=== PATIENT | female | born 1970 | race Hispanic/Latino ===

== ENCOUNTER 2017-01-23 16:47 | Observation (INO) | payer OTHER ==
[~2017-01-23] VITALS: Ht 160 cm; Wt 65.4 kg
[2017-01-23] VITALS (10 sets, daily range): BP systolic 129–158; BP diastolic 69–89; PULSE 64–79; RESP 16–20; O2SAT 97–100
[~2017-01-23 16:47] MED LIST: NO MEDS
--- NOTE | 2017-01-23 19:17 | ED.REPORT ---
HPI-General Illness Date of Service Jan 23, 2017 ED Provider: Zion Sagastume MD Pt is a 46 y/o female w/ a hx of pernicious anemia, cytopenias, chronic Hep C, bilateral complex ovarian cysts, presenting to the ED by request of Dr. Landon with concern for anemia. She had blood tests earlier today and Dr. Landon requesting she come into the hospital for blood transfusion. She has been having abnormally large amount of menstrual bleeding for 3 months. She states she has been receiving B12 shots for 2 years. She is feeling asymptomatic at the moment and specifically denies bloody stools, vomiting, CP, SOB, fever, chills, melena, nausea. 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: Barbi Nursing Notes Stated Complaint: SENT HERE BY DR LLAMAS OFFICE FOR BLOOD TRANSFUSI Chief Complaint: General Complaint Nursing Notes Reviewed: Yes Allergies: Coded Allergies: No Known Allergies (Verified , 01/23/17) No Active Prescriptions or Reported Meds General Time Seen by MD: 19:12 Chief Complaint Other (Anemia) Hx Obtained From: Patient Arrived By: Walk-in Sudden in Onset?: No Onset Occurred: Onset unknown Severity: Current: No pain currently Severity: Maximum: No pain Recent Healthcare: Recent testing, Previous diagnosis, Prior workup Similar Sx Previous: Yes Past Medical History Past Medical History Notes: 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: Barbi Past Medical History Pernicious anemia Cytopenias - Dr. Landon believes are related to Hep C Chronic Hep C Bilateral complex ovarian cysts Past Surgical History None reported Smoking History Former Smoker Social History Other Social History: Good social support, Ambulatory Status Independent Review of Systems Full Review of Systems Constitutional: Denies: Chills, Fever Respiratory: Denies: Non-productive cough, Shortness of breath Cardiovascular: Denies: Chest pain, Dyspnea on exertion GI: Denies: Abdominal pain, Bloody/tarry stool, Hematemesis, Hematochezia, Melena, Nausea, Vomiting Female: Reports: Vaginal bleeding - abnl, Denies: Vaginal discharge Complete sys rev & neg: except as marked. Physical Exam Vital Signs Vital Signs Date Time Temp Pulse Resp B/P Pulse Ox O2 Delivery O2 Flow Rate FiO2 01/23/17 16:58 36.7 64 16 129/88 100 Room Air Initial VS: Reviewed ENT: Mucous membranes moist, Conjunctiva normal, No scleral icterus Neck: Supple, Full range of motion Respiratory: Breath sounds normal, Clear to auscultation, No respiratory distress Cardiovascular: Regular rate & rhythm, Heart sounds normal, Intact distal pulses Abdomen / GI: Soft, Non-tender, No guarding, No rebound, No distention Neurologic: Alert, Oriented, Nonfocal Psychiatric: Mood/affect normal, Behavior normal, Normal thought content General/Constitutional: Awake, Alert, No acute distress, Cooperative, Not toxic appearing Head / Eyes: Atraumatic, Normocephalic Conjunctiva / Sclera: Positive: Pallor Interpretation & Diagnostics Lab Results Interpretation Test 01/23/17 17:50 Hold Purple Top Tube Received (Received) Hold Blue Top Tube Received (Received) Hold Red Top Tube Received (Received) Hold [place] Top Tube Received (Received) Hold Patten Top Tube Received (Received) Re-Eval/Medical Decision Med Decision/Clinical Course 46-year-old female history of pernicious anemia, hepatitis C presenting sent over by oncologist for hemoglobin of 6.6. She reports heavy menorrhagia last 3 months. Denies blood in stool or urine. Her MCV is low at 82. She is asymptomatic. Patient will be admitted for blood transfusion. Possibly d/t menorrhagia. Source of Hx: Old records Time of Eval: 19:29 Re-Evaluation/Progress Note: Pt rechecked. Pt informed of need for admission. Pt understands and agrees with plan for admission. All questions addressed. Consultation : Referral / Consult Name: Pau Gonsalez MD Consulted With: Hospitalist Call Returned at: 21:08 Clinical Research Tech: Will see patient, Agrees with eval, Agrees with plan, Accepts admit Note: The patient was transported to the floor prematurely. Counseled Regarding: Diagnosis, Lab results, Need for admission Discharge & Departure Primary Impression: Pernicious anemia Disposition: ADMITTED TO HOSPITAL Discharge Condition All VS Reviewed: Yes Condition: Stable Referrals: [facility] (PCP) Jessaibobi Attestation Portions of this note were transcribed by Heriberto Tyson. I, Dr. Sagastume personally performed the history, physical exam and medical decision-making; I reviewed and confirmed the accuracy of the information in the transcribed note. Signed by Lawanda Boyd, 01/23/17 - 1999 copies to: [facility] A[facility] Ben M MD Jan 23, 2017 19:17 HERIBERTO TYSON Jan 23, 2017 19:23
[2017-01-23 19:49] LABS: BASOPHILS % (AUTO) 0.3 % (0-3); EOSINOPHILS % (AUTO) 0.6 % (0-5); MONOCYTES % (AUTO) 7.1 % (4-12); Mean Corpuscular Hemoglobin 24.7 pg (27.0-35.0); NEUTROPHILS % (AUTO) 44.6 % (40-74); Platelet Count 146 bil/L (150-400)
[2017-01-23 19:54] LABS: INR 0.94 ratio
[2017-01-23] MEDS ORDERED: Ondansetron 2 mg/mL 2 mL Inj IVPUSH PRN ×2 (21:10→21:25)
[2017-01-23] MEDS ORDERED: Alum-Mag Hydrox-Simeth 30 mL Suspension PO PRN ×2 (21:10→21:25)
[2017-01-23] MEDS ORDERED: Polyethylene Glycol (PEG) 17 Gm Powder PO PRN (21:25)
--- NOTE | 2017-01-23 22:01 | NUR ---
Admit received report from ED RN Nila Hogue at 2049. pt arrived to room [facility] by job [id number]. family at bed side. pt transferred self to bed and ambulated to the rest room on arrival. gait steady. no dizziness/lightheadedness. pt came with RBCs blood transfusion running at 125ml/hr. vital signs WNL with BP elevated at arrival(158/85), but went down to 130s /80s. will continue to monitor.
--- NOTE | 2017-01-23 23:52 | PCM.HPMED ---
Subjective Date of Service Jan 23, 2017 Primary Provider: Admitting Physician: Pau Gonsalez MD Primary Care Physician: [facility] Attending Physician: Pau Gonsalez MD Chief Complaint: Anemia, Pernicious History of Present Illness: Patient is a 46-year-old woman with history of pernicious anemia, cytopenias, chronic hepatitis C, bilateral complex ovarian cysts, presenting to the emergency department by request of Dr. Landon after outpatient laboratory tests showed low hemoglobin earlier today. She is instructed that she needed blood transfusion and was told to go to the emergency department. She denies any lightheadedness, chest pain, shortness of breath, hematochezia, melena, easy bruising, rashes, however does state over the last 3 months she has had larger than normal amounts of menses. She has been receiving B12 shots for 2 years. In the emergency department she does not have quite blood cell count of 3.3, hemoglobin 7.0, hematocrit 23.2, platelets 146, mean corpuscular volume 82. RDW 14.7. She was type and crossed in the emergency department, O+ blood, negative antibody screen, and she received 2 transfusions and transferred to the medical observation floor. Review of Systems: Comprehensive review of systems negative unless specified in history of present illness Allergies Coded Allergies: No Known Allergies (Verified , 01/23/17) Home Medications B12 injections None seen on outpatient record PMH Pernicious anemia Cytopenias - Dr. Landon believes are related to Hep C Chronic Hep C Bilateral complex ovarian cysts Tuberculosis per outpatient record diagnosed in 1999 Hydronephrosis Diverticulitis Renal and bladder calculi Surgical History EGD Colonoscopy Liver biopsy Appendectomy Right nephrectomy History of intestinal surgery Cystoscopy was laser lithotripsy Family History Father passed the age of 75 from liver disease Mother is alive and well Social History Hx Alcohol Use: No Hx Substance Use: No Hx Tobacco Use: No Smoking Status: Former Smoker Living Arrangement: with Family Exam Vital Signs Vital Sign - Last Date Time Temp Pulse Resp B/P Pulse Ox O2 Delivery O2 Flow Rate FiO2 01/23/17 21:05 36.9 72 20 158/85 100 01/23/17 21:05 Room Air Exam General: Laying in bed, no apparent distress. HEENT: Normocephalic, atraumatic, EOMI grossly, mucous membranes moist, conjunctivae are pale Cardiovascular: Regular rate and rhythm, no clicks murmurs rubs, peripheral pulses 2/4 equal bilaterally Pulmonary: Clear to auscultation bilaterally, no W/R/R. Abdominal: Soft to palpation, bowel sounds present 4, no hepatosplenomegaly. Negative rebound. Extremities: No edema appreciated. No tenderness, asymmetry. No bruising, capillary Refills normal Neuro: Neurologically grossly intact, strength is equal bilaterally upper and lower extremities. MSK: able to move extremities on their own volition, strength 5 out of 5 equal bilaterally to upper and lower extremities. Lab and Diagnostics Result Diagram: 01/23/17 6645 Assessment & Plan 46-year-old woman with pernicious anemia, hepatitis C, history of tuberculosis, found to be anemic requiring transfusion, asymptomatic. Stable. No somatic complaints. #1 acute on chronic normocytic anemia, present on admission, treatment initiated -Diagnosed pernicious anemia, hemoglobin 7.0. - 2 units of O+ blood crossmatch and administered. - Recheck hemoglobin every 4 hours following transfusion - Given the normocytic nature of the anemia this may be due to blood loss or iron deficiency. She has a history of increased menstrual volume. - Iron studies, and Hemoccult. VTE prophylaxis with SCDs, avoid antithrombotic's due to possible bleed. GI prophylaxis is not indicated Pain management: She describes no pain. Patient was admitted for asymptomatic anemia, requiring transfusion, observational status. Pain Evaluation: Adequate Pain Control GI Prophylaxis: Not indicated VTE Prophylaxis Indicated: Contraindicated (possible active bleed) VTE Prophylaxis: SCDs VTE Mechanical Devices: Intermittant Pneumatic CD Resuscitation Status: CPR: Attempt Resuscitation Attending Statement Patient seen and examined by myself and agree with above plan. Marshal Dempsey DO Jan 23, 2017 21:31 Pau Gonsalez MD Jan 24, 2017 18:53
[2017-01-24] VITALS (7 sets, daily range): BP systolic 126–145; BP diastolic 73–90; PULSE 61–78; RESP 12–18; O2SAT 97–100
[2017-01-24 00:09] LABS: Unsaturated Iron Binding 409.7 ug/dL
[2017-01-24 04:23] LABS: BASOPHILS % (AUTO) 0.8 % (0-3); EOSINOPHILS % (AUTO) 0.5 % (0-5); MONOCYTES % (AUTO) 8.5 % (4-12); Mean Corpuscular Hemoglobin 26.3 pg (27.0-35.0); Mean Corpuscular Volume 82.5 fL (81-100); NEUTROPHILS % (AUTO) 43.8 % (40-74); Platelet Count 137 bil/L (150-400)
--- NOTE | 2017-01-24 04:54 | NUR ---
Blood Transfusion completion transfused two units of blood. completed at 0240. no fever, chills, CARIAS, dyspnea, chest pain or other transfusion reaction. Will continue to monitor.
--- NOTE | 2017-01-24 15:11 | NUR ---
Social Work Note: Screen Note Data& Assessment: EMR reviewed. Patient is a 46 year old female admitted on 01/23/2017 for Anemia. Pt has [employer] for insurance coverage and goes to [facility] for primary care. Pt lives in [place] with family and is independent at baseline. Pt is currently SBA in her room. No discharge needs identified at this time. SW to continue to follow if any needs arise. Plan: Anticipated discharge home via POV when medically ready. No discharge needs identified at this time. SW to continue to follow if any needs arise. Juana Saeed, NICKY, ACM
--- NOTE | 2017-01-24 16:34 | NUR ---
Status MD assessed pt at bedside. Pt continues to have no complaints of pain or discomfort or n/v/d. Pt comfortable, will continue to monitor.
--- NOTE | 2017-01-24 20:54 | PCM.PNMED ---
Subjective Date of Service Jan 24, 2017 Subjective Patient is seen and examined. She was able to discuss her health with the help of her daughters. She says that she never had a transfusion before. She had a normal periods in the last 3 months which she feels may be why she lost her blood. Dr. Guidry, her binder chainstitch is contacted by phone and he feels that this is a pretty big drop in her hemoglobin from her baseline. Patient is noncompliant towards the recommendations for follow up of her and elevated a 125 , complex ovarian cysts as seen on her ultrasound. Iron panel overnight showed a mixed picture of chronic and iron deficiency. Folate and B12 were within normal. She states that she is feeling well without any symptoms after blood transfusion. Exam Vital Signs Vital Sign - Last Date Time Temp Pulse Resp B/P Pulse Ox O2 Delivery O2 Flow Rate FiO2 01/24/17 18:03 77 14 126/73 99 Room Air 01/24/17 13:50 36.7 Intake and Output 01/23/17 01/23/17 01/24/17 Cumulative From/Thru 15:00 23:00 07:00 01/23/17 16:58 - 01/24/17 06:30 Intake Total 1692 ml 1692 ml Output Total 675 ml 675 ml Balance 1017 ml 1017 ml Intake Oral 472 ml 472 ml IV Total 720 ml 720 ml Packed Cells 500 ml 500 ml Output Urine Total 675 ml 675 ml # Bowel Movements 0 0 Exam Gen.: No acute distress pleasant HEENT: Normocephalic atraumatic. Lungs: Clear to auscultation and wheezes. Abdomen: No tenderness to deep palpation, normal bowel sounds are present Extremities: without edema Psych: affect pleasant mood cooperative Neuro: no focal deficits. IVs and Medications Medications Reviewed: Medications were reviewed in detail Lab and Diagnostics Result Diagram: 01/24/17 0400 Assessment & Plan 46-year-old woman with pernicious anemia, hepatitis C, history of tuberculosis, found to be anemic requiring transfusion, asymptomatic. Stable. No somatic complaints. #1 acute on chronic normocytic anemia, present on admission, treatment initiated -Diagnosed pernicious anemia, hemoglobin 7.0. - 2 units of O+ blood crossmatch and administered. - Recheck hemoglobin every 4 hours following transfusion - Given the normocytic nature of the anemia this may be due to blood loss or iron deficiency. She has a history of increased menstrual volume. - Iron studies, and Hemoccult: Mixed WOLF and chronic disease anemia picture, B12 and folate levels normal - Post transfusion H&H appropriately came up - GI consult for EGD, colonoscopy: will await recommendations -- Discussed the plan with patient. - Dr. Chao Kunz patient's binder chainstitch is consulted. He feels that her hemoglobin dropped by quite a bit by 6 points since last August and he feels important to find the source. VTE prophylaxis with SCDs, avoid antithrombotic's due to possible bleed. GI prophylaxis is not indicated Pain management: She describes no pain. Patient was admitted for asymptomatic anemia, requiring transfusion, observational status. GI Prophylaxis: Not indicated VTE Prophylaxis: SCDs VTE Mechanical Devices: Intermittant Pneumatic CD Resuscitation Status: CPR: Attempt Resuscitation Barbara Zapata DO Jan 24, 2017 20:54
[2017-01-25] VITALS (8 sets, daily range): BP systolic 88–146; BP diastolic 45–91; PULSE 54–71; RESP 15–17; O2SAT 96–100
--- NOTE | 2017-01-25 05:05 | NUR ---
Shift Note Assumed pt care at 1900, pt frisian speaking only, at bedside, electronic bilingual interpreter used for communication, at 0455, received phone call from Dr. Serrano, GI doc consulting, telephone order for NPO status, for AM EGD, scheduled at 8am, informed pt and , consents printed, placed in chart.
[2017-01-25] MEDS ORDERED: fentaNYL-PF 50 mCg/mL 2 mL Inj ONE (06:54)
[2017-01-25] MEDS ORDERED: 0.9% Sodium Chloride 1,000 ML ONE (06:54)
--- NOTE | 2017-01-25 08:56 | NUR ---
EGD/Diet Received phone call from Dr. Gimenez, stated the EGD has been done and it appears normal, stated patient can start on a Clear Liquid diet and then will have colonoscopy done on an outpatient basis; stated patient can be discharged today. Told him hospitalist today is Dr. Zapata, he stated he would call Dr. Zapata and discuss patient.
--- NOTE | 2017-01-25 09:25 | NUR ---
Report from Endo Received report from Endo RN Maite. Stated patient did well during procedure, found no source of bleeding up top, biopsies were taken; 4mg Versed given, 75 Fentanyl given, 850ml fluids given; BP 101/54, SR in the 60's and SpO2 97%.
--- NOTE | 2017-01-25 10:07 | PCM.DC.MED ---
Discharge Summary Date of Service Jan 25, 2017 Dates of Hospitalization Date of Hospital Admission Jan 23, 2017 at 20:42 Date of Discharge: Jan 24, 2017 Providers: Admitting Physician: Pau Gonsalez MD Primary Care Physician: [facility] Attending Physician: Pau Gonsalez MD Diagnosis at Time of Discharge Diagnosis at Time of Discharge Anemia secondary to menorrhagia vs chronic disease, Hepatitis C Consultations GI Brief History Patient is a 46-year-old woman with history of pernicious anemia, cytopenias, chronic hepatitis C, bilateral complex ovarian cysts, presenting to the emergency department by request of Dr. Landon after outpatient laboratory tests showed low hemoglobin earlier today. She is instructed that she needed blood transfusion and was told to go to the emergency department. She denies any lightheadedness, chest pain, shortness of breath, hematochezia, melena, easy bruising, rashes, however does state over the last 3 months she has had larger than normal amounts of menses. She has been receiving B12 shots for 2 years. In the emergency department she does not have quite blood cell count of 3.3, hemoglobin 7.0, hematocrit 23.2, platelets 146, mean corpuscular volume 82. RDW 14.7. She was type and crossed in the emergency department, O+ blood, negative antibody screen, and she received 2 transfusions and transferred to the medical observation floor. Hospital Course 46-year-old woman with pernicious anemia, hepatitis C, history of tuberculosis, found to be anemic requiring transfusion, asymptomatic. Stable. No somatic complaints. #1 acute on chronic normocytic anemia, present on admission, treatment initiated : Previous diagnosis of pernicious anemia, her B12 and Folate are stable per recent lab. Given the normocytic nature of the anemia this may be due to blood loss or iron deficiency (iron studies show a mixed picture of WOLF and chronic disease). She has a history of increased menstrual volume. 2 units of O+ blood crossmatch and administered. H&H were stable at the time of discharge. GI was consulted to eliminate the possibility that she has malignancy or upper GI ulcers (stool guiac is negative). Dr. Gimenez has seen the patient and performed an EGD which did not reveal any acute source of bleeding. He plans to do an outpatient colonoscopy. On the day of discharge, patient is feeling well, ambulating and toelrating normal diet. #2 Hepatitis C chronic POA: Stable #3 B/L Complex Ovarian cysts: We recommend an outpatient follow up with [facility] or [facility]. Patient was given a list of providers to call and setup an appointment with. She is agreeable to this plan. #4 Menorrhagia: We recommend an outpatient follow up with [facility]PRES[facility] or [facility]. Patient was given a list of providers to call and setup an appointment with. She is agreeable to this plan. Exam Vital Signs (Last) Date Time Temp Pulse Resp B/P Pulse Ox O2 Delivery O2 Flow Rate FiO2 01/25/17 10:01 36.3 55 16 114/75 98 Room Air 01/25/17 08:52 4 Exam Eyes: Tina conjunctivae. No ptosis, PERRL Neck: No masses, trachea midline, no thyromegaly Lungs: CTA with normal respiratory effort CV: RRR, no murmurs/rubs/gallops GI: Soft, non-tender with no hepatosplenomegaly Skin: Warm and dry. No rash, lesions or ulcers Psych: A&O X3, with approprate affect Test 01/23/17 17:50 01/24/17 04:00 01/24/17 21:15 Hold Purple Top Tube Received (Received) Prothrombin Time 10.0sec (8.1-12.5) Prothromb Time International Ratio 0.94ratio Hold Blue Top Tube Received (Received) Iron Level 14ug/dL (35-150) Total Iron Binding Capacity 424ug/dL (250-450) Percent Iron Saturation 3%sat (15-50) Unsaturated Iron Binding 409.7ug/dL Hold Red Top Tube Received (Received) Hold [place] Top Tube Received (Received) Hold Patten Top Tube Received (Received) White Blood Count 3.9th/mm3 (3.8-10.1) Red Blood Count 3.38mil/mm3 (3.90-5.20) Mean Corpuscular Volume 82.5fL (81-100) Mean Corpuscular Hemoglobin 26.3pg (27.0-35.0) Mean Corpuscular Hemoglobin Concent 31.9% (32.0-37.0) Red Cell Distribution Width 14.7% (12.3-15.4) Platelet Count 137bil/L (150-400) Neutrophils (%) (Auto) 43.8% (40-74) Lymphocytes (%) (Auto) 46.4% (14-46) Monocytes (%) (Auto) 8.5% (4-12) Eosinophils (%) (Auto) 0.5% (0-5) Basophils (%) (Auto) 0.8% (0-3) Hemoglobin 9.3g/dL (12.0-15.6) Hematocrit 30.1% (35.0-46.0) Discharge Medications Discharge Medications Ferrous Sulfate (Ferrous Sulfate) 325 Mg Tablet 325 MG PO BID Prescribed by: DO Jodi RIZO Aruna DO Jan 25, 2017 10:07
--- NOTE | 2017-01-25 14:21 | PCM.DIMED ---
Discharge Instructions Date of Service Jan 25, 2017 Dates of Hospitalization Jan 23, 2017 at 20:42 Discharge Diagnosis Discharge Diagnosis Anemia due to pernicuious anemia vs. menorrhagia Diet No restrictions Call your provider Fever or Chills, Shortness of breath, Bleeding, Chest pain, Vomitting, Excessive diarrhea, Weakness (unilateral), Other Patient Instructions Follow-up plan Please follow up with Dr. Landon in one-two weeks. Please schedule patient for outpt colonoscopy in one week please follow up with PCP in two weeks Barbara Zapata DO Jan 25, 2017 14:21
[2017-01-25] MEDS ORDERED: FERR-83 PO (14:23)
--- NOTE | 2017-01-25 14:27 | NUR ---
Social Work-discharge: Data:EMR reviewed. Pt is on day 3 of hospitalization for anemia per H&P. Pt is medically stable to discharge home today. SW confirms plan of home no needs. Pt has been up independent in her room. No discharge needs identified. All updated and agreeable to plan. Assessment:Pt who is independent at baseline. Plan:Pt to discharge home today via POV. No discharge needs identified. All updated and agreeable to plan. MILAGROS uGnter
--- NOTE | 2017-01-25 15:20 | NUR ---
Discharge Note Patient given all discharge instructions and information, to include phone number for GI clinic and phone number for [facility] to follow up with [facility]. Patient and patient's family had no questions at this time. Patient's IV discontinued, intact, at this time. Patient was escorted off the unit, as she did not want to use a wheelchair, patient's family also present.
--- NOTE | 2017-01-25 16:54 | CONS ---
[address] [address] CONSULTATION REPORT PATIENT: MEET RASHID : 1970 MR#: [id number] ADMIT: 01/23/2017 JOB ID: [id number] DATE OF SERVICE: REASON FOR CONSULTATION: Anemia. 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 She was sent to the hospital for blood transfusion. I have been consulted for further evaluation of her anemia. On admission yesterday, she was noted to have a hemoglobin of 7, hematocrit of 23.2. Her MCV was normal at 82. Her platelet count was 146. Her white blood cell count was 3.3. Her PT was 10. INR was 0.94. Her iron studies showed an iron of 14 and percent saturation of 3%. Her hemoglobin back in July 2016 has been 12 and subsequently has been 6.6, 7. In April 2013, an upper endoscopy was performed for nausea, vomiting, and epigastric pain, and at that time, she was found to have a clean-based duodenal bulb ulcer. In May 2014, she underwent colonoscopy for abnormal CT imaging of the colon. Colonoscopy revealed an ileocolonic anastomosis consistent with right hemicolectomy, internal and external hemorrhoids but no other findings. In June 2015, she had a repeat upper endoscopy done, documented ulcer healing. Biopsies of her stomach that were performed on her initial endoscopy did show H. pylori which then was subsequently treated, and we did document that she cleared the infection . Also, on her initial endoscopy, she had duodenal biopsies done, which did not show any evidence of celiac disease. I subsequently then saw her in clinic and most recently back in August 2016. She had come to see me after she was hospitalized in [place] for what she described as a bowel obstruction. At that time, patient stated that she was seeing sleep lab technician at the [facility] where discussions were underway to treat her hepatitis C, genotype 3. We had attempted to treat her hepatitis C. However, she was denied insurance coverage for treatment. Upon my interview with the patient today, she has no complaints and states she feels well. She came to the hospital at the urging of her oncologist secondary to her anemia. She denies any hematemesis, melena, hematochezia, nausea, vomiting, abdominal pain. She denies any chronic NSAID use. PAST MEDICAL HISTORY: Significant for chronic hepatitis C, chronic anemia. PAST SURGICAL HISTORY: Includes a right hemicolectomy, unclear for the etiology of this. SOCIAL HISTORY: No history of alcohol or tobacco use. FAMILY HISTORY: No family history of colon cancer or chronic liver disease. REVIEW OF SYSTEMS: Her 10-point review of systems is negative except as mentioned in the HPI. HOME MEDICATIONS: Include B12 injections. She has no known drug allergies. PHYSICAL EXAMINATION: She has been afebrile and her pulse is 55, blood pressure 114/75, respiratory rate of 16, O2 saturations 98% on room air. Generally, middle-aged woman appearing in no apparent distress. Is oriented to person, place, time, and answers questions appropriately. HEENT: Mild pallor. No icterus. Oropharynx is clear. Chest exam: Clear to auscultation bilaterally. Cardiovascular exam: S1, S2 heard. Systolic ejection murmur. Abdomen is soft, nontender, nondistended, without hepatosplenomegaly. Extremities: Without edema. LABORATORY DATA: Shows a white blood cell count of 3.3, hemoglobin 7, hematocrit of 23.2, MCV of 82. Platelet count of 146. Then, following 2 units of packed red blood cells, her hemoglobin increased to 9.3 with hematocrit of 30.1. PT 10, INR 0.94. Her iron studies show iron of 14, percent iron saturation of 3%, and TIBC of 424. No chemistries have been ordered. ASSESSMENT AND PLAN: 1. A 46-year-old woman with a history of chronic hepatitis C, genotype 3, admitted for iron deficiency anemia. Will plan for upper endoscopy and colonoscopy to evaluate. If upper endoscopy and colonoscopy are negative, will then need to consider small bowel evaluation with capsule study. Additionally, she does have a history of heavy menses and therefore Gynecology evaluation should be considered as a possible etiology for her anemia. In addition, would consider checking a urinalysis to rule out hematuria. 2. Chronic hepatitis C. Once her anemia issues have been resolved, she would be a candidate for treatment of her chronic hepatitis C. Thank you for allowing me to participate in the patient's care. If you have any questions, please do not hesitate to contact me. MTDD
--- NOTE | 2017-01-25 18:02 | ENDO ---
[address] [address] ENDOSCOPY PROCEDURE PATIENT: MEET RASHID : 1970 MR#: [id number] ADMIT: 01/23/2017 JOB ID: [id number] PROCEDURE: Esophagogastroduodenoscopy. INDICATION: Anemia. Patient's ASA classification is II. Mallampati score is II. MEDICATIONS: Versed 4 mg, fentanyl 75 mcg. INSTRUMENT USED: [id number]. PROCEDURE DETAILS: After informed consent was obtained, the patient was brought into the GI suite, where she was placed on oxygen via nasal cannula and monitored with continuous pulse oximeter, telemetry, and blood pressure monitoring. A time-out was performed. Then, she was placed in a left lateral decubitus position and medications were administered for sedation. A bite block was placed. A standard EGD scope was inserted through the bite block and advanced under direct visualization to the 2nd portion of the duodenum without difficulty. FINDINGS: 1. Normal-appearing duodenal bulb, first and second portion. Multiple random biopsies were obtained in the duodenum secondary to patient's history of anemia. 2. Normal-appearing pylorus, antrum, and gastric body. 3. Retroflexed views in the gastric body revealed a normal-appearing cardia and fundus. 4. Multiple random biopsies were obtained throughout the antrum and body of the stomach. 5. The GE junction was at approximately 36 cm. There was a short tongue of salmon-colored mucosa extending to 35 cm. This short tongue was biopsied. 6. Remainder of the esophagus appeared normal. IMPRESSION: 1. Slightly irregular gastroesophageal junction. Otherwise, normal exam to second portion of duodenum. 2. 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 RECOMMENDATIONS: 1. Await biopsy results. 2. Start clear liquid diet and advance as tolerated. 3. Okay to discharge home from Gastroenterology standpoint as no evidence of active bleeding. My office will contact her to schedule outpatient colonoscopy this week. COMPLICATIONS: None. ESTIMATED BLOOD LOSS: Less than 5 mL.
--- NOTE | 2017-01-28 11:25 | PATH ---
SURGICAL PATHOLOGY Attending Physician:Sherri Lewis CASE STATUS: Signed Out PATIENT NAME: MEET RASHID PID: [id number] : 1970 DATE COLLECTED:01/25/2017 00:00 SPECIMEN: 1: Duodenum, Biopsy 2: Gastric, Biopsy 3: Esophagus, Biopsy CLINICAL HISTORY: 1). DUODENUM BIOPSY 2). GASTRIC BIOPSY 3). DISTAL ESOPHAGUS BIOPSY FINAL DIAGNOSIS: 1.DUODENUM BIOPSY: FRAGMENTS OF NORMAL-APPEARING DUODENUM MUCOSA. Normal delicate mucosal villi present. Negative for significant inflammation, dysplasia and malignancy. 2.GASTRIC BIOPSY: MILD CHRONIC GASTRITIS INVOLVING ANTRAL AND FUNDIC MUCOSA. Negative for evidence of Helicobacter. Negative for intestinal metaplasia. Negative for dysplasia and malignancy. 3.DISTAL ESOPHAGUS BIOPSY: SQUAMOUS MUCOSA AND GASTRIC CARDIA-TYPE MUCOSA NEGATIVE FOR SPECIALIZED METAPLASIA OF HAYDEN' S-TYPE ESOPHAGUS. Negative for dysplasia and malignancy. Eosinophils are not increased. ICD10 code K29.70 GROSS DESCRIPTION: The specimen is received in three formalin filled containers labeled with the patient's name. 1). The specimen is sublabeled "duodenum" and consists of 3 portions of tissue which aggregate to 0.3 x 0.3 x 0.3 CM. The specimen is entirely submitted in cassette 1A. 2). The specimen is sublabeled "gastric" and consists of 4 portions of tissue which aggregate to 0.4 x 0.4 x 0.3 CM. The specimen is entirely submitted in cassette 2A. 3). The specimen is sublabeled "distal esophagus" and consists of 2 portions of tissue which aggregate to 0.3 x 0.3 x 0.2 CM. The specimen is entirely submitted in cassette 3A. 01/26/2017 [facility] MICRO DESCRIPTION: See diagnosis. ICD-9 CODES: CPT CODES: 1: 70977 2: 18441 3: 66068 Electronically Signed Out Ventura Tee MD [facility] Pathology [facility] [place] [address] Technical component performed at [facility], [facility] [address], [place], [address]
== END 2017-01-25 15:18 | disposition home or self-care (01) ==
LOC: SED 16:47 → MOC 20:42
PROVIDERS: ADMIT Specialist; ATTEND Specialist
DX: D64.9 Anemia, unspecified (principal); B18.2 Chronic viral hepatitis C; N92.0 Excessive and frequent menstruation with regular cycle; Z90.5 Acquired absence of kidney; Z87.442 Personal history of urinary calculi; Z87.891 Personal history of nicotine dependence; N83.209 Unspecified ovarian cyst, unspecified side; Z86.19 Personal history of other infectious and parasitic diseases; Z90.49 Acquired absence of other specified parts of digestive tract
CPT/HCPCS: 36415; 36430; 43239; 82274; 82728; 83540; 83550; 85014; 85018; 85025; 85610; 86850; 86922; 99285; G0378; J2250; J3010; J7030; P9021

== ENCOUNTER 2017-03-10 08:24 | Day surgery (SDC) | payer OTHER ==
[~2017-03-10] VITALS: Ht 162.6 cm; Wt 64.0 kg
[~2017-03-10 08:24] MED LIST changes: +0.9% Sodium Chloride 1,000 ML IV SCH; +FERR-83 PO; -NO MEDS; +Sodium Chloride LOK Flush 10 mL Syringe IV PRN; +fentaNYL-PF 50 mCg/mL 2 mL Inj IVPUSH PRN
[2017-03-10 08:45] VITALS: BP 128/82; PULSE 68; RESP 16; O2SAT 98
[2017-03-10] MEDS ORDERED: PEDI1TAB52 PO (08:48)
[2017-03-10 09:38] VITALS: BP 108/76; PULSE 66; RESP 14; O2SAT 98
[2017-03-10 09:47] VITALS: BP 108/72; PULSE 69; RESP 16; O2SAT 100
[2017-03-10 09:48] VITALS: BP 114/72; PULSE 62; RESP 16; O2SAT 99
--- NOTE | 2017-03-10 10:02 | ENDO ---
[address] [address] ENDOSCOPY PROCEDURE PATIENT: MEET RASHID : 1970 MR#: [id number] ADMIT: 03/10/2017 JOB ID: [id number] PROCEDURE: Colonoscopy INDICATION: Anemia ASA CLASSIFICATION: 2 MALLAMPATI SCORE: 2 MEDICATIONS: 1. Versed 3 mg. 2. Fentanyl 75 mcg. INSTRUMENT USED: [id number]. PREPARATION QUALITY: Good. PROCEDURE DETAILS: After informed consent was obtained, the patient was brought to the GI suite, where she was placed on oxygen via nasal cannula and monitored with continuous pulse oximeter, telemetry, and blood pressure monitoring. A time-out was performed. Then, she was placed in left lateral decubitus position and medications were administered for sedation. Digital rectal exam was performed, which revealed moderate-sized internal hemorrhoids. The colonoscope was then inserted into the rectum and advanced under direct visualization to the ileocolic anastomosis. Once the ileocolic anastomosis was reached, the neoterminal ileum was intubated and traversed. The colonoscope was then withdrawn back into the rectum as the mucosa and lumen were examined. In the rectum, retroflexion was performed. Following retroflexion, remaining air in the rectum was suctioned, and procedure was completed. FINDINGS: 1. Surgical changes consistent with ileocolic anastomosis. 2. Otherwise normal exam from rectum to cecum. 3. No findings to explain the patient's anemia. RECOMMENDATIONS: 1. Follow up in GI clinic. 2. Follow up with Hematology. COMPLICATIONS: None. ESTIMATED BLOOD LOSS: Zero.
== END 2017-03-10 23:59 | disposition home or self-care (01) ==
LOC: END 08:24
PROVIDERS: ATTEND Internal Medicine Gastroenterology
DX: D64.9 Anemia, unspecified (principal); B18.2 Chronic viral hepatitis C; Z90.49 Acquired absence of other specified parts of digestive tract
CPT/HCPCS: 45378; G0500; J7030

== ENCOUNTER 2017-03-14 12:40 | Observation (INO) | payer OTHER ==
[~2017-03-14] VITALS: Ht 160 cm; Wt 62.6 kg
[~2017-03-14 12:40] MED LIST changes: -0.9% Sodium Chloride 1,000 ML IV SCH; -Sodium Chloride LOK Flush 10 mL Syringe IV PRN; -fentaNYL-PF 50 mCg/mL 2 mL Inj IVPUSH PRN
[2017-03-14 13:02] VITALS: BP 122/81; PULSE 62; RESP 20; O2SAT 100
--- NOTE | 2017-03-14 14:19 | ED.REPORT ---
HPI-Dizziness / Weakness Date of Service Mar 14, 2017 ED Provider: Nick Brambila PA-C Cinthia is a 47 female with a history of anemia and chronic hepatitis C presenting with a chief complaint of dizziness. She is Indonesian-speaking and history is performed with the help of remote gas producer. She reports an episode of dizziness lasting roughly 1/2 hour that occurred approximately 2 hours before presentation. She states that she was eating her lunch when she suddenly became dizzy. She describes her dizziness as "head spinning." This is associated with weakness. She denies losing consciousness, slumping over the table or falling out of her chair, but she says that her revised her by putting rubbing alcohol under her nose. Family present the room reports that she suddenly became unresponsive and placed a hand to her head but did not fall over. At this time she reports her head feels "heavy" and she feels weak. Denies similar episodes previously. Denies chest pain, palpitations, jaw pain , arm pain, sweating, nausea/vomiting cardiac history. Denies use of alcohol/ tobacco/drugs, history of diabetes, high blood pressure, hyperlipidemia. Denies family history of MT. Denies unilateral leg swelling, use of estrogen, control pills, hemoptysis, shortness of breath, recent trauma/surgery, history of DVT/PE, cancer. Denies history of CVA/TIA. Denies hearing changes, tinnitus, headache, upper respiratory symptoms. 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 Landon believes are related to Hep C Chronic Hep C Bilateral complex ovarian cysts Toyyy-Zdtqtzzoz-Aiydl Past Surgical History None reported Smoking History Former Smoker Social History Other Social History: Good social support, Ambulatory Status Independent Review of Systems Review of Systems Note: Negative unless stated otherwise in history of present illness Physical Exam General: Well appearing, well developed, well nourished, no acute distress. Head: Atraumatic, normocephalic. No mastoid tenderness. Eyes: No scleral icterus or injection. No discharge. PERRL. Vision grossly intact. Ears: Pinna and tragus nontender with manipulation. External auditory canal patent, atraumatic and without discharge. Tympanic membrane hebert, shiny and translucent without fluid, bulging, retraction or perforation. Hearing grossly intact. Nose: Symmetrical, nares patent without discharge. No frontal or maxillary sinus tenderness. Mouth/pharynx: normal dentition, mucus membranes moist. Tonsils 2+ and symmetrical, uvula midline. Pharynx noninjected, no cobblestoning or discharge. Voice clear. Neck: No tenderness or lymphadenopathy. Trachea midline. Respiratory: Regular rate and rhythm. Breath sounds present, clear to auscultation and equal bilaterally. No respiratory distress. No increased work of breathing, speaks in complete sentences. Cardiovascular: Regular rate and rhythm, without murmur, gallop or rub despite careful auscultation. No pedal edema. Gastrointestinal: Abdomen flat and non-tender without guarding or rebound. Bowel sounds normoactive. Skin: Warm and dry. Legs: Diameter roughly equal pnvr-st-[id number], calves nontender bilaterally, negative Homans sign bilaterally. Negative edema. Neurological: Normal finger-nose, rapid hand, heel-huber. Negative pronator drift. Cranial nerves: Vision grossly intact, PERRL, EOMI. Facial motion symmetrical, sensation to light touch over forehead, maxilla and mandible present and equal B /L. Voice clear and fluent, no drooling/pooling of saliva, uvula rises midline. Psychological: Alert and oriented. Speech appropriate, linear and logical. Behavior appropriate. Initial Vital Signs Vital Signs (First) Date Time Temp Pulse Resp B/P Pulse Ox O2 Delivery O2 Flow Rate FiO2 03/14/17 13:02 36.6 62 20 122/81 100 Room Air Interpretation & Diagnostics Interpretation & Diagnostics: Orthostatic vital signs: Layin/70 (right arm) and 60 hr. Standin/78 (right arm) and 70 hr. Lab Results Interpretation Result Diagram: 03/14/17 1427 03/14/17 1427 Test 03/14/17 14:27 03/14/17 16:31 03/14/17 18:42 White Blood Count 3.8th/mm3 (3.8-10.1) Red Blood Count 4.22mil/mm3 (3.90-5.20) Hemoglobin 12.2g/dL (12.0-15.6) Hematocrit 36.2% (35.0-46.0) Mean Corpuscular Volume 85.8fL (81-100) Mean Corpuscular Hemoglobin 28.9pg (27.0-35.0) Mean Corpuscular Hemoglobin Concent 33.7% (32.0-37.0) Red Cell Distribution Width 18.5% (12.3-15.4) Platelet Count 114bil/L (150-400) Neutrophils (%) (Auto) 53.3% (40-74) Lymphocytes (%) (Auto) 37.9% (14-46) Monocytes (%) (Auto) 7.3% (4-12) Eosinophils (%) (Auto) 1.0% (0-5) Basophils (%) (Auto) 0.5% (0-3) Sodium Level 139mEq/L (134-144) Potassium Level 3.9mEq/L (3.5-5.2) Chloride Level 103mEq/L (97-108) Carbon Dioxide Level 20mmol/L (18-29) Blood Urea Nitrogen 11mg/dL (6-24) Creatinine 0.59mg/dL (0.57-1.00) Estimat Glomerular Filtration Rate 155mL/min (>59) Glucose Level 88mg/dL (60-99) Calcium Level 9.5mg/dL (8.5-10.1) Total Bilirubin 0.6mg/dL (0.0-1.2) Aspartate Amino Transf (AST/SGOT) 20U/L (0-50) Alanine Aminotransferase (ALT/SGPT) 15U/L (0-32) Alkaline Phosphatase 61U/L (25-150) Pro-B-Type Natriuretic Peptide 107.1pg/mL (0-249) Total Protein 7.3g/dL (6.4-8.4) Albumin 4.1g/dL (3.4-5.0) Thyroid Stimulating Hormone (TSH) 3.050uIU/mL (0.450-4.500) Human Chorionic Gonadotropin, Qual Negative (Negative) Hold Patten Top Tube Received (Received) Hold Urine Received (Received) Magnesium Level 1.9mg/dL (1.6-2.6) ECG Interpretation ECG Interpretation: Sinus rhythm, Gkvav-Owhsuebag-Qwzpe pattern rate of 57, regular rhythm. Unchanged from previous study performed 2013 Time: 14:20 Interpreted by: ED physician ECG Interpretation: Sinus rhythm with 2 distinct P-wave morphologies. One conducts to a narrow complex QRS, the second to a wide complex QRS. Time: 17:30 Interpreted by: ED physician Re-Eval/Medical Decision Med Decision/Clinical Course 47-year-old female presents following an episode of dizziness that occurred without provocation while seated at the dinner table. This is associated with weakness and lasted approximately one half hour. She denies other symptoms or medical history. Denies antecedent illness. Physical examination is benign including a negative Manuel-Hallpike, normal neurological examination, negative leg swelling, tenderness or Homans sign. EKG reveals a Rvltb-Qexkfuyvx-Cbhfb pattern, which is unchanged since previous study 2013. CBC, CMP and urinalysis are unremarkable. Troponin negative. Second EKG reveals variable waveforms. At this point I am reassured regarding pulmonary embolus, stroke. Benign positional vertigo or vestibular neuronitis seem unlikely. I am likewise reassured that MT is unlikely. I remained concerned about possible arrhythmia. Discussed these findings with Dr. carey, who evaluated and examined the patient. We also discussed this with Dr. Walls, who feels that a cardiac etiology is unlikely. Dr. carey and I remained concerned that arrhythmia is a possibility. Admission sought for observation with cardiology consult. Hospitalist excepts and she is transferred to the floor. Consultation : Referral / Consult Name: Santos Walls MD Consulted With: Cardiology Call Returned at: 17:20 Note: Dr. Walls does not feel that this history suggests a tachyarrhythmia or other cardiac etiology. Patient Discharge & Departure Impression: Primary Impression: Dizziness Additional Impression: Abnormal EKG Disposition: ADMITTED TO HOSPITAL Referrals: [facility] (PCP) EDSupervising Provider for APC: Sadiq Carey MD Attending Statement Attending attestation: I saw this patient in conjunction with Nick Brambila PA-C. Discussed EKG findings concerning for Yulpe-Pzjgfdpwu-Hvclh syndrome and need for cardiology consultation. I reevaluated the patient at the bedside and noticed that she seemed to be going in and out of a narrow versus wide complex sinus rhythm. I obtained a repeat EKG that demonstrated appeared to be 2 different P-wave morphologies, one followed by a wide complex and the other followed by a normal appearing narrow complex. His raises ongoing concerns that her syncopal event may have been cardiogenic. She will be admitted on telemetry with plan for cardiology consultation. Sadiq Carey MD [facility] ASHANTI THOMAS Seth PA-C Mar 14, 2017 14:19 Sadiq Carey MD Mar 14, 2017 16:19 Sadiq Carey MD [facility] A[facility] THOM[facility] Seth PA-C Mar 14, 2017 14:19 Sadiq Carey MD Mar 14, 2017 16:19
[2017-03-14] MEDS ORDERED: 0.9% Sodium Chloride 1,000 ML IV ONE (14:20)
[2017-03-14 14:38] LABS: BASOPHILS % (AUTO) 0.5 % (0-3); MONOCYTES % (AUTO) 7.3 % (4-12); Mean Corpuscular Hemoglobin 28.9 pg (27.0-35.0); Mean Corpuscular Volume 85.8 fL (81-100); NEUTROPHILS % (AUTO) 53.3 % (40-74); Platelet Count 114 bil/L (150-400)
[2017-03-14 15:13] LABS: Magnesium 1.9 mg/dL (1.6-2.6)
[2017-03-14 15:16] VITALS: BP_SYST 124; BP_SYST 149; BP_DIAS 70; BP_DIAS 78; PULSE 60
[2017-03-14 16:29] VITALS: BP 132/78; PULSE 62; RESP 15; O2SAT 100
[2017-03-14 16:39] LABS: TROPONIN T < 0.010 ug/L (0.0-0.011)
[2017-03-14 18:21] VITALS: BP 136/86; PULSE 70; RESP 27; O2SAT 100
[2017-03-14] MEDS ORDERED: Polyethylene Glycol (PEG) 17 Gm Powder PO PRN (18:30)
[2017-03-14] MEDS ORDERED: Alum-Mag Hydrox-Simeth 30 mL Suspension PO PRN (18:30)
[2017-03-14] MEDS ORDERED: Ondansetron 2 mg/mL 2 mL Inj IVPUSH PRN (18:30)
[2017-03-14 19:31] VITALS: BP 131/77; PULSE 65; RESP 20; O2SAT 100
--- NOTE | 2017-03-14 20:02 | PCM.HPMED ---
Subjective Date of Service Mar 14, 2017 Primary Provider: Admitting Physician: Ewelina Sue DO Primary Care Physician: [facility] Attending Physician: Ewelina Sue DO Admit Status: From the Emergency Department Chief Complaint: "dizzy" History of Present Illness: Ms. Jones is a 47 y/o woman with history of pernicious and normocytic anemia, WPW, and bilateral complex ovarian cysts who presented to the hospital for dizziness that she describes as her feeling like she is spinning. It started around noon today when she was eating lunch. She has not felt this way before. She is not sure if she passed out but states that her put rubbing alcohol under her nose to wake her up. Her reports that she was laying on the ground for 15 minutes. She had trouble standing up afterwards and had generalized weakness. No seizure-like activity reported by her who witnessed the event. She has a headache at the base of her head and it started at the same time that she felt dizzy. No changes in her vision, photophobia, numbness, tingling, weakness in her arms or legs. No chest pain, dyspnea, or palpitations. No fever, chills, upper respiratory infection symptoms, nausea, vomiting, or diarrhea. She does not have any blood in her urine or stools. translator and interpreter [employer] used for this encounter. In the emergency department, EKG revealed Srthh-Hihoxxnut-Jpgpe pattern, which was unchanged since previous study 2013. Troponin was negative and CBC and CMP were unremarkable. A second EKG revealed variable waveforms. Dr. Walls was consulted, who felt that a cardiac etiology was unlikely. Review of Systems: A comprehensive review of systems was conducted with the patient and found to be negative except as above in the History of Present Illness. Allergies Coded Allergies: No Known Allergies (Verified , 01/23/17) Home Medications Iron supplement PMH Pernicious anemia and normocytic anemia, followed by Dr. Landon Bilateral complex ovarian cysts Hepatitis C, which patient reports that she finished a 3 month treatment. Outpatient records report that she has been going to for treatment and it is unclear if she has completed it. Kidney stones Bladder stones Latent TB treated in 1999 Surgical History Appendectomy and right hemicolectomy S/p right nephrectomy Family History Mother has diabetes mellitus No family history of CAD or CVAs Social History Hx Alcohol Use: No Hx Substance Use: No Hx Tobacco Use: No Smoking Status: Former Smoker Living Arrangement: with Family Exam Vital Signs Vital Sign - Last Date Time Temp Pulse Resp B/P Pulse Ox O2 Delivery O2 Flow Rate FiO2 03/14/17 19:31 65 20 131/77 100 Room Air 03/14/17 13:02 36.6 Exam General: No acute distress, well-developed, well-nourished, appropriately interactive HEENT: Normocephalic, atraumatic. External ears without defect. Pupils equal, round, and reactive to light and accommodation. Anicteric sclerae, moist conjunctivae, and no lid lag. Oropharynx free of erythema and cobble stoning with moist mucosa. No nystagmus. Neck: Supple with full range of motion. No lymphadenopathy or thyromegaly. Cardiovascular: Regular rate and rhythm with no murmurs, rubs, or gallops appreciated Pulmonary: Clear to auscultation bilaterally with no crackles, wheezes, or rhonchi. Normal respiratory effort with no use of accessory muscles. Abdomen: Bowel tones present. Soft, nontender, nondistended. No hepatosplenomegaly or masses appreciated. Extremities: No clubbing, cyanosis, edema, or lymphadenopathy appreciated. Skin: Normal temperature, turgor, and texture; no rash, ulcers, or subcutaneous nodules appreciated. Neurological: Cranial nerves grossly intact. Normal muscle strength, tone, and bulk. Coordination and sensory function within normal limits. No known gait impairment. Psychiatric: Normal mood and affect. Alert and oriented to person, place, and time. Lab and Diagnostics Labs Item Value Date Time Vitamin B12 Level 380 pg/mL 03/11/17 1359 Item Value Date Time Iron Level 133 ug/dL 03/11/17 1359 Total Iron Binding Capacity 242 ug/dL L 03/11/17 1359 Percent Iron Saturation 55 %sat H 03/11/17 1359 Unsaturated Iron Binding 109.4 ug/dL 03/11/17 1359 Ferritin 274 ng/mL H 03/11/17 1359 Result Diagram: 03/14/17 1427 03/14/17 142 Assessment & Plan Ms. Jones is a 47 y/o woman with history of pernicious and normocytic anemia, WPW, and bilateral complex ovarian cysts who presented to the hospital for dizziness that she describes as her feeling like she is spinning. 1. Syncope, acute, present on admission. 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 Patient also has associated dizziness. Initial troponin was negative. Patient does not have chest pain, dyspnea, or leg swelling. Orthostatic vital signs do not show orthostatic changes. Her CBC is unremarkable. She does not have any focal neurological deficits on exam. No witnessed seizure-like activity. Patient has chronic bilateral complex ovarian cysts with an elevated CA-125 in the past, and she has not followed up with gynecology. - Trend troponin x 3 - CBC and CMP in the morning, monitor morning blood glucose level - Echocardiogram for further evaluation of an underlying structural abnormality - CT scan brain - Consider possible further neurologic work-up such as EEG or tilt-table test 2. Srylr-[id number]-Qeqyk, acute on chronic, present on admission. - Cardiology consultation for tomorrow morning for possible further evaluation - Continue telemetry for 24 hour monitoring for possible change to an unstable arrhythmia - Echocardiogram as above 3. Acute on chronic headache, present on admission. - Likely related to #1 above - Pt is afebrile and does not have neck stiffness and has a history of headaches in her medical records - Continue to monitor for worsening symptoms 4. Pernicious anemia, chronic, stable. - Vitamin B12 within normal limits on 03/11/17 - Following with hematology and periodically receiving vitamin B12 injections 5. Chronic normocytic anemia, stable. - Iron panel done on 03/11/17, showed iron within normal limits, TIBC mildly decreased, elevated % saturation, and elevated ferritin level. - EGD and colonoscopy done in 01/2017 and 02/2017, respectively, were normal - Continue following with hematology as recommended - Continue ferrous sulfate 6. Bilateral complex ovarian cysts, chronic. - Visualized on previous pelvic ultrasound - Elevated CA-125 in 05/2016 - Pt was referred to gynecology but has not followed up there yet - She is to have a repeat pelvic and transvaginal ultrasound for her follow up appointment with hematology/oncology in 4-6 weeks 7. Hepatitis C, chronic, stable. - Continue following with GI as an outpatient 8. S/p right nephrectomy, stable - Continue monitoring urine output and avoid nephrotoxins VTE Prophylaxis: Sub-Q Heparin (Unfractionated) Resuscitation Status: CPR: Attempt Resuscitation Attending Statement The patient was seen and examined together with house staff on 03/14/2017 and I agree with the history, exam and plan as outlined in the note above. Selina Crawford DO Mar 14, 2017 20:02 Ewelina Sue DO Mar 15, 2017 02:17
[2017-03-14] MEDS: 0.9% Sodium Chloride 1,000 ML IV SCH (20:57)
[2017-03-14 23:04] VITALS: BP 128/76; PULSE 65; RESP 17; O2SAT 97
[2017-03-15] VITALS (10 sets, daily range): BP systolic 109–126; BP diastolic 66–79; PULSE 60–79; RESP 16–18; O2SAT 96–99
--- NOTE | 2017-03-15 | NUR ---
Admit note Pt arrived to [facility] at 194. Pt stating came to ER due to dizziness. Placed pt on tele. UA sent. IV fluids infusing. Pt up to bathroom, steady on feet. Light Fixture Servicer used for assessment. Admit completed prior to pt arriving to [facility].
[2017-03-15 01:08] LABS: APPEARANCE,URINE CLEAR (CLEAR,HAZY); COLOR,URINE STRAW (YELLOW); OCCULT BLOOD,URINE MODERATE (NEGATIVE); UROBILINOGEN,URINE NORMAL (NORMAL)
[2017-03-15 06:41] LABS: BASOPHILS % (AUTO) 0.3 % (0-3); EOSINOPHILS % (AUTO) 1.6 % (0-5); MONOCYTES % (AUTO) 8.1 % (4-12); Mean Corpuscular Hemoglobin 28.2 pg (27.0-35.0); Mean Corpuscular Volume 83.2 fL (81-100); NEUTROPHILS % (AUTO) 44.7 % (40-74); Platelet Count 111 bil/L (150-400)
--- NOTE | 2017-03-15 08:09 | DRSVH ---
PROCEDURE: CT BRAIN WITHOUT CONTRAST ([id number]) INDICATIONS: dizziness, syncope TECHNIQUE: Noncontrast 4.5 mm thick angled axial sections acquired from the foramen magnum to the vertex, with c oronal reformats. COMPARISON: None. FINDINGS: Image quality: Excellent. CSF spaces: Basal cisterns are patent. No extra-axial fluid collections. Ventricles are normal in size and shape. Brain: No midline shift. No intracranial masses or hemorrhage. Lopes-white matter interface is norm al. Basal ganglia calcifications are present. Skull and face: Calvarium and visualized facial bones are intact, without suspicious lesions. Sinuses: Visualized sinuses and mastoids are clear. IMPRESSION: 1. No acute intracranial process. Dictated by: Lazara Dorantes M.D. on 03/15/2017 at 8:06 Approved by: Lazara Dorantes M.D. on 03/15/2017 at 8:08
[2017-03-15] MEDS: Heparin 5,000 Unit/mL Inj SUBQ SCH ×2 (11:39→20:30)
[2017-03-15] MEDS: 0.9% Sodium Chloride 1,000 ML IV SCH ×2 (11:39→14:26)
--- NOTE | 2017-03-15 12:36 | NUR ---
Off floor to CT Patient off floor at [address] scan by wheelchair accompanied by PRODUCT SAFETY OFFICER. nanotechnology engineering technician aware, chart with patient. VSS, denies pain and in no apparent distress.
--- NOTE | 2017-03-15 12:39 | DRSVH ---
[facility] [address] [place] [address] Echocardiogram Report Name: MEET RASHID Study Date: 03/15/2017 Height: 63 in Hospital Exam Location: [facility] Weight: 138 lb Gender: Female BSA: 1.7 m2 : 1970 Age: 47 yrs BP: 115/79 m mHg Reason For Study: Syncope Ordering Physician: [facility]PITALIST [facility] Performed By: Tao Chowdary Referring Physician: RUBÉN FELTON Interpretation Summary The left ventricle is normal in size, wall thickness, and systolic function without any focal wall motion abnormalities. Septal motion is consistent with conduction abnormality. The right ventricle grossly appears normal in size with probable normal systolic function. There is no significant valvular heart disease. No other echocardiographic abnormalities seen. Compared to the prior echo report on 08/25/2013, there is no significant change. Procedure: A two-dimensional transthoracic echocardiogram with color flow and Doppler was performed. The study quality was technically difficult. Comparison is made with the echocardiogram of 08/25/13. Most of the acoustic windows were suboptimal, but the best imaging was obtained from the parasternal window. The heart rate ranged between 65-72 bpm during the study. There is a wide QRS complex c/w WPW during the exam. Left Ventricle: The left ventricle is normal in size. There is normal left ventricular wall thickness. The left ventricle is normal in size, wall thickness, and systolic function without any focal wall motion abnormalities. The ejection fraction is estimated to be 60-65%. Septal motion is consistent with conduction abnormality. Regional wall motion abnormalities cannot be excluded due to limited visualization. Right Ventricle: The right ventricle grossly appears normal in size with probable normal systolic function. Atria: The left atrium grossly appears normal in size. The right atrium grossly appears normal in size. The interatrial septum is intact with no evidence for an atrial septal defect. Mitral Valve: The mitral valve is grossly normal. There is no mitral regurgitation noted. Aortic Valve: The aortic valve is grossly normal. No aortic regurgitation is present. Tricuspid Valve: The tricuspid valve is not well visualized, but is grossly normal. Pulmonary artery pressures cannot be estimated because of the lack of a measurable TR jet velocity. Pulmonic Valve: The pulmonic valve is not well visualized. Great Vessels: The aortic root is normal size. The dimensions of the ascending aorta are normal. The pulmonary artery is not well visualized, but is probably normal size. The IVC is of normal diameter and collapses greater than 50% with a sniff. This suggests a low right atrial pressure of 3 mm Hg. Pericardium/ Pleura There is no pericardial effusion. There is no pleural effusion. MMode/2D Measurements & Calculations LVIDd LVOT diam: 1.9 cm LV murillo. diameter/BSA LV sys. diameter/BSA : 4.1 cm Ao root diam (cm/m^2): 2.5 (cm/m^2): 1.7 LVIDs : 2.8 cm asc Aorta Diam FS: 30.9 % IVSd Ao Arch Diam (Prox : 0.7cm Trans): 2.6 cm LVPWd : 0.9cm Doppler Measurements & Calculations LVOT Max Demarcus MV E max demarcus MV E/A MV dec time : 67.1 cm/sec : 77.2 cm/sec : 1.2 : 0.18 sec MV A max demarcus : 65.1 cm/sec LV V1 max P.8 mmHg LV V1 VTI: 14.2 cm Reading Physician:12:38 PM
--- NOTE | 2017-03-15 12:57 | NUR ---
Social Work Note: Screen Note Data & Assessment: EMR reviewed. 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 Pt has [employer] for insurance coverage and goes to [facility] for primary care. Pt lives with family and is independent at baseline. Pt is currently SBA in her room. No discharge needs identified at this time. SW to continue to follow if any needs arise. Plan: Anticipated discharge home via POV when medically ready. No discharge needs identified at this time. SW to continue to follow if any needs arise. Juana Saeed, NICKY, ACM
--- NOTE | 2017-03-15 14:15 | PCM.PNMED ---
Subjective Date of Service Mar 15, 2017 Subjective Son and at the beside. Son translating. Patient describes yesterday's event as both vertigo and syncope. "Room spinning". and felt lightheaded. but mainly as room spinning. Denies any symptoms today. Son and think that the patient probably was dehydrated/over exhausted since she was doing chores for kids libertarian at home. Never had Similar symptom before. Did not have any chest pain or palpitation. Exam Vital Signs Vital Sign - Last Date Time Temp Pulse Resp B/P Pulse Ox O2 Delivery O2 Flow Rate FiO2 03/15/17 10:50 36.8 74 18 126/73 96 Room Air Intake and Output 03/14/17 03/14/17 03/15/17 Cumulative From/Thru 15:00 23:00 07:00 03/14/17 13:02 - 03/15/17 06:59 Intake Total 1000 ml 1197 ml 2197 ml Output Total 1050 ml 1050 ml Balance 1000 ml 147 ml 1147 ml Intake Oral 450 ml 450 ml IV Total 1000 ml 747 ml 1747 ml Output Urine Total 1050 ml 1050 ml # Bowel Movements 0 0 Exam General: No acute distress, well-developed, well-nourished, appropriately interactive HEENT: Normocephalic, atraumatic. External ears without defect. Pupils equal, round, and reactive to light and accommodation. Anicteric sclerae, moist conjunctivae, and no lid lag. Oropharynx free of erythema and cobble stoning with moist mucosa. No nystagmus. Neck: Supple with full range of motion. No lymphadenopathy or thyromegaly. Cardiovascular: Regular rate and rhythm with no murmurs, rubs, or gallops appreciated Pulmonary: Clear to auscultation bilaterally with no crackles, wheezes, or rhonchi. Normal respiratory effort with no use of accessory muscles. Abdomen: Bowel tones present. Soft, nontender, nondistended. No hepatosplenomegaly or masses appreciated. Extremities: No clubbing, cyanosis, edema, or lymphadenopathy appreciated. Skin: Normal temperature, turgor, and texture; no rash, ulcers, or subcutaneous nodules appreciated. Neurological: Cranial nerves grossly intact. Normal muscle strength, tone, and bulk. Coordination and sensory function within normal limits. No known gait impairment. Psychiatric: Normal mood and affect. Alert and oriented to person, place, and time. IVs and Medications Medications Reviewed: Medications were reviewed in detail Lab and Diagnostics Result Diagram: 03/15/1761403/15/17614 Cardiac Echo Impressions Interpretation Summary The left ventricle is normal in size, wall thickness, and systolic function without any focal wall motion abnormalities. Septal motion is consistent with conduction abnormality. The right ventricle grossly appears normal in size with probable normal systolic function. There is no significant valvular heart disease. No other echocardiographic abnormalities seen. Compared to the prior echo report on 08/25/2013, there is no significant change. Assessment & Plan Ms. Jones is a 47 y/o woman with history of pernicious and normocytic anemia, WPW, and bilateral complex ovarian cysts who presented to the hospital for dizziness that she describes as her feeling like she is spinning. 1. Vertigo, acute, present on admission. -possibly due to BPPV vs lightheadedness due to dehydration - Differential diagnosis includes but not limited to: WPW syndrome, other arrhythmia, orthostatic hypotension - discussed with cardiology Dr Walls . Patient was seen by Dr. Antunez for W PW previously. Conduction abnormality was presumed to be asymptomatic and not likely to cause any major issue. She was advised to see him yearly but was lost in follow-up 3 years ago.. Initial troponin was negative. Patient does not have chest pain, dyspnea, or leg swelling. Orthostatic vital signs do not show orthostatic changes. Her CBC is unremarkable. She does not have any focal neurological deficits on exam. No witnessed seizure-like activity. Patient has chronic bilateral complex ovarian cysts with an elevated CA-125 in the past, - Echocardiogram unchanged from prior - CT scan brain negative -will order MRI for evaluation of other etiology of vertigo -Meclizine when necessary 2. Mtuln-Xdsbokfkx-Zusfi, acute on chronic, present on admission. -Discussed his cardiology, unlikely to be etiology of her symptoms. Advised to follow-up with Dr. Antunez outpatient - Continue telemetry for 24 hour monitoring for possible change to an unstable arrhythmia - Echocardiogram as above 3. Acute on chronic headache, present on admission. - Likely related to #1 above - Pt is afebrile and does not have neck stiffness and has a history of headaches in her medical records - Continue to monitor for worsening symptoms 4. Pernicious anemia, chronic, stable. - Vitamin B12 within normal limits on 03/11/17 - Following with hematology and periodically receiving vitamin B12 injections 5. Chronic normocytic anemia, stable. - Iron panel done on 03/11/17, showed iron within normal limits, TIBC mildly decreased, elevated % saturation, and elevated ferritin level. - EGD and colonoscopy done in 01/2017 and 02/2017, respectively, were normal - Continue following with hematology as recommended - Continue ferrous sulfate 6. Bilateral complex ovarian cysts, chronic. - Visualized on previous pelvic ultrasound - Elevated CA-125 in 05/2016 - Pt was referred to gynecology but has not followed up there yet - She is to have a repeat pelvic and transvaginal ultrasound for her follow up appointment with hematology/oncology in 4-6 weeks 7. Hepatitis C, chronic, stable. - Continue following with GI as an outpatient 8. S/p right nephrectomy, stable - Continue monitoring urine output and avoid nephrotoxins Disposition: Possible discharge tomorrow on meclizine after MRI and PT eval VTE Prophylaxis: Sub-Q Heparin (Unfractionated) Resuscitation Status: CPR: Attempt Resuscitation Saji Choudhary MD Mar 15, 2017 14:15
--- NOTE | 2017-03-15 14:28 | CONS ---
[address] [address] CONSULTATION REPORT PATIENT: MEET RASHID : 1970 MR#: [id number] ADMIT: 03/14/2017 JOB ID: [id number] DATE OF SERVICE: 03/15/2017 I was called from the emergency department last night after the patient presented with an episode of transient altered consciousness at home with an EKG demonstrating WPW. Her symptoms were of dizziness while she was sitting, eating, and with her head felt like she was spinning. There was no history of palpitations associated with her episode. It is not entirely clear to me from her history if she was, in fact, syncopal. When I was contacted by the emergency department, I thought that the likelihood for a cardiac dysrhythmia was quite small given her prodrome of vertigo. As I have reviewed her outpatient records, she was previously seen in July [address] Antunez, when a preop EKG demonstrated evidence of WPW. Her evaluation at that time included a ZIO patch monitor, demonstrating absence of any significant dysrhythmias. This was a one-week ZIO patch with intermittent delta waves or WPW conduction. She had a stress test which demonstrated resolution of the delta wave with exercise and recurrence with rest, and it was felt by Dr. Antunez, who saw her at that time in consultation, that this was likely a right free-wall bypass tract which was fairly weak given its intermittent appearance and resolution with exercise, and a likelihood for significant symptomatic tachyarrhythmias was felt to be very small. Her echocardiogram performed today is unchanged from before and suggests no significant structural heart disease and essentially is normal. My recommendation is that this patient complete neurologic evaluation. It sounds possible that this represented perhaps a mild seizure event or simply represented vertigo. It sounds very unlikely to be a cardiac-related issue, and I would recommend that she simply follow up with Dr. Antunez, who had wanted her seen on an annual basis. I do not believe any further cardiac evaluation is indicated while she is in the hospital unless she has documented dysrhythmias on her monitor.
[2017-03-16 00:40] VITALS: BP 117/75; PULSE 80; RESP 18; O2SAT 97
[2017-03-16] MEDS: 0.9% Sodium Chloride 1,000 ML IV SCH (05:24)
[2017-03-16 05:27] VITALS: BP 114/68; PULSE 68; RESP 18; O2SAT 98
[2017-03-16 06:54] LABS: BASOPHILS % (AUTO) 0.3 % (0-3); EOSINOPHILS % (AUTO) 1.6 % (0-5); MONOCYTES % (AUTO) 10.2 % (4-12); Mean Corpuscular Hemoglobin 28.6 pg (27.0-35.0); Mean Corpuscular Volume 85.7 fL (81-100); NEUTROPHILS % (AUTO) 45.5 % (40-74); Platelet Count 122 bil/L (150-400)
--- NOTE | 2017-03-16 08:15 | DRSVH ---
PROCEDURE: MRI BRAIN WITHOUT CONTRAST ([id number]) INDICATIONS: Vertigo TECHNIQUE: Noncontrast axial T1 spin echo, axial T2 fast spin echo, sagittal and axial FLAIR, coronal T2 fast sp in echo, axial gradient echo, axial diffusion and ADC through the brain. COMPARISON: None. FINDINGS: Image quality: Excellent. CSF Spaces: Basal cisterns are patent. No extra-axial fluid collections. Ventricles are normal in size and shape. Brain: No intracranial masses or hemorrhage. Lopes/white matter interface is normal. Brainstem appe ars normal. Diffusion-weighted images demonstrate no acute ischemic insult. No chronic ischemic ins ults. Normal intravascular flow voids are present. Skull and face: Calvarium has normal marrow signal. Orbits appear normal. Sinuses: Sinuses and mastoids are clear. IMPRESSION: No abnormalities found on the MRI of the brain, other than minimal amounts of increased s ignal on flair images in the white matter consistent with microvascular ischemic change of aging, don e without contrast for vertigo. Dictated by: Nabor Corrales M.D. on 03/16/2017 at 8:05 Approved by: Nabor Corrales M.D. on 03/16/2017 at 8:08
[2017-03-16] MEDS: Heparin 5,000 Unit/mL Inj SUBQ SCH (08:31)
[2017-03-16 09:18] VITALS: BP 115/74; PULSE 65; RESP 18; O2SAT 98
[2017-03-16] MEDS ORDERED: cefTRIAXone Inj 1,000 MG in Dextrose 5% Minibag Plus 50 ML IV SCH (10:10)
[2017-03-16 10:19] VITALS: PULSE 66
--- NOTE | 2017-03-16 11:44 | PCM.DIMED ---
Discharge Instructions Date of Service March 16, 2017 Dates of Hospitalization Mar 14, 2017 at 18:45 Discharge Diagnosis Discharge Diagnosis # Vertigo, acute, present on admission. Resolved. Possibly related to urine infection # Cystitis: Noted on admission urine studies. Awaiting antibiotic sensitivity. Discharge with Keflex, consider changing based on results (will follow-up via phone if resistance is present). # Xiisz-Ybqddaxgz-Jizbe, acute on chronic, present on admission: #. Acute on chronic headache, present on admission. Now resolved. #. Pernicious anemia, chronic, stable. #. Chronic normocytic anemia, stable. #. Bilateral complex ovarian cysts, chronic. #. Hepatitis C, chronic, stable. #. S/p right nephrectomy, stable Diet No restrictions, Heart Healthy Activity No restrictions Call your provider Fever or Chills Patient Instructions Follow-up Provider: [facility] Follow-up with PCP in: 1 week Hilton Reece DO March 16, 2017 11:44
[2017-03-16] MEDS ORDERED: Meclizine Hcl PO (11:45)
[2017-03-16] MEDS ORDERED: CEPH-512 PO (11:45)
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
--- NOTE | 2017-03-16 12:59 | NUR ---
Discharge went over discharge instructions with patient and family who verbally acknowledged understanding. Removed IV and tele. pt left on foot with family. NO s/s of distress at time of discharge
--- NOTE | 2017-03-16 14:42 | NUR ---
Evaluation completed. Please go to "Notes" then click on "Assessments and Notes" (bottom left corner of screen). Then select appropriate discipline tab on top of screen.
== END 2017-03-16 12:59 | disposition home or self-care (01) ==
LOC: SED 12:40 → MPC 18:45
PROVIDERS: ADMIT Internal Medicine; ATTEND Internal Medicine
DX: R42 Dizziness and giddiness (principal); R55 Syncope and collapse; N30.90 Cystitis, unspecified without hematuria; I45.6 Pre-excitation syndrome; R51 Headache; D51.0 Vitamin B12 deficiency anemia due to intrinsic factor deficiency; D50.9 Iron deficiency anemia, unspecified; N83.292 Other ovarian cyst, left side; N83.291 Other ovarian cyst, right side; B18.2 Chronic viral hepatitis C; Z90.5 Acquired absence of kidney; Z87.891 Personal history of nicotine dependence
CPT/HCPCS: 36415; 70450; 70551; 80053; 81000; 83735; 83880; 84443; 84484; 84703; 85025; 87077; 87086; 87088; 87186; 93005; 96361; 96365; 97161; 99285; C8929; G0378; J0696; J1644; J7030